=== PATIENT | female | born 1975 | race Two or more races ===

== ENCOUNTER → 2021-01-19 | Day surgery (SDC) | payer MEDICAID ==
[2021-01-16 13:10] LABS: APPEARANCE,URINE CLEAR; BASOPHILS % (AUTO) 1.7 % (0.0-2.0); BILIRUBIN, URINE NEGATIVE (NEGATIVE); COLOR,URINE PALE YELLOW; EOSINOPHILS % (AUTO) 5.6 % (0.0-3.0); GLUCOSE, URINE (UA) NEGATIVE (NEGATIVE); HEMATOCRIT 37.6 % (37.0-47.0); HEMOGLOBIN 11.6 G/DL (12.0-16.0); KETONES,URINE NEGATIVE (NEGATIVE); LEUKOCYTE ESTERASE ,URINE 1+ (NEGATIVE); LYMPHOCYTES % (AUTO) 25.6 % (20.0-45.0); MEAN CORPUSCULAR VOLUME 84 FL (80-99); MONOCYTES % (AUTO) 10.5 % (1.0-10.0); NEUTROPHILS % (AUTO) 56.6 % (45.0-75.0); NITRITE,URINE NEGATIVE (NEGATIVE); PH,URINE 5 (4.5-8.0); PLATELET COUNT 393 K/UL (150-450); PROTEIN,URINE NEGATIVE (NEGATIVE); RED BLOOD COUNT 4.46 M/UL (4.20-5.40); UROBILINOGEN,URINE NORMAL MG/DL (0.0-1.0); WHITE BLOOD COUNT 8.1 K/UL (4.8-10.8)
[2021-01-16 13:14] LABS: ANION GAP 11 mmol/L (5-15); BLOOD UREA NITROGEN 12 mg/dL (7-18); CALCIUM 9.5 MG/DL (8.5-10.1); CARBON DIOXIDE 25 MMOL/L (21-32); CHLORIDE 103 MMOL/L (98-107); CREATININE 0.7 MG/DL (0.55-1.30); SODIUM 139 MMOL/L (136-145)
[2021-01-16 13:23] LABS: INR 0.9 (0.9-1.1)
--- NOTE | 2021-01-17 11:59 | Pre-op HX & Phy Repo 2 SIG ---
DATE OF ADMISSION: 01/19/2021 SCHEDULED FOR OUTPATIENT SURGERY: January 19, 2021. HISTORY OF PRESENT ILLNESS: The patient is a 45-year-old female in overall good health with ductal carcinoma in situ of the left breast. The patient underwent imaging studies revealing 1 cm abnormal calcifications in the upper outer quadrant of the left breast. Core biopsy revealed ductal carcinoma in situ on November 24, 2020. Repeat core biopsy December 07, revealed no malignancy, attempting to biopsy additional isolated microcalcifications. Subsequently, the patient underwent an MRI revealing two biopsy clips, one at 12 o'clock, one at 2 o'clock in the left breast upper outer quadrant 9 cm from the nipple, two abnormal areas adjacent. The patient is scheduled to undergo left breast partial mastectomy with preoperative stereotactic needle localization x2. PAST MEDICAL HISTORY/MEDICATIONS: In the past for toe fungus. ALLERGIES: None. OPERATIONS: Removal of cyst of back. REVIEW OF SYSTEMS: She is 1, para 1. She has regular menstrual periods. PHYSICAL EXAMINATION: GENERAL: The patient is 5 feet 5 inches, 193 pounds. VITAL SIGNS: Within normal limits. HEENT: Within normal limits. LUNGS: Clear. HEART: Regular rhythm. BREASTS: Large and ptotic. There is no palpable mass in either breast. No primary or secondary sign of tumor. No axillary or supraclavicular lymphadenopathy. ABDOMEN: Soft. PELVIC AND RECTAL: Per primary care. EXTREMITIES: Without edema. NEUROLOGIC: Physiologic. IMPRESSION: Ductal carcinoma in situ, left breast, two adjacent abnormal lesions. PLAN: Left breast partial mastectomy with preoperative needle localization x 2 DISCUSSION: I have had a full discussion with the patient regarding the nature of her condition, the nature of the surgery, indications, alternatives, options, and risks including bleeding, infection, distortion of the breast or nipple and need for additional treatments including radiation to the breast and possible endocrine therapy and if invasive carcinoma is found then she would need lymph node biopsy and possible additional treatments. She understands and agrees to proceed. Joseph Wells M.D. DR: GLADIS/HAMIDA JOB#: [id number] CC: KATT
[2021-01-19] VITALS (12 sets, daily range): BP systolic 91–136; BP diastolic 40–80
[~2021-01-19] VITALS: Ht 160 cm; Wt 87.5 kg
[~2021-01-19] MED LIST: Bacitracin 50000 Units Vial ONE; D5 1/2NS 1,000 ML IV SCH; DiphenhydrAMINE 50mg/ml Inj IVP PRN; HYDROcodone/Acetamin 5/325 tab ORAL PRN; HYDROmorphone 1mg/ml Carpuject SUBQ PRN; Hydromorphone 0.5mg/0.5ml inj IVP PRN; Ketorolac 30mg Inj IV PRN; LORazepam Inj 2mg/ml 1ml IV PRN; LR 1000ml 1,000 ML IVLG SCH; Lidocaine 1% MPF 10mg/ml 5ml ONE; Midazolam 2mg/2ml Inj IVP PRN; Midazolam 2mg/2ml Inj ONE; NS Irrig 1000ml IRRIG ONE; NeoSporin Gu Irrig 1ml Amp IRRIG ONE; Tylenol #3 tab (300mg/30mg) ORAL PRN; fentaNYL 100 mcg/2 mL IV ONE; fentaNYL 100 mcg/2 mL IV PRN
--- NOTE | 2021-01-19 08:53 | Pre-Procedure Note/Attestation ---
Pre-Procedure Note/Attestation Complete Prior to Procedure Planned Procedure: left Procedure Narrative: left breast partial mastectomy with pre-operative needle localization Indications for Procedure Pre-Operative Diagnosis: ductal carcinoma in situ left breast Attestation I attest that I discussed the nature of the procedure; its benefits; risks and complications; and alternatives (and the risks and benefits of such alternatives), prior to the procedure, with the patient (or the patient's legal office services representative). I attest that, if there was a reasonable possibility of needing a blood transfusion, the patient (or the patient's legal office services representative) was given the [facility] standardized written summary, pursuant to the [place] Blood Safety Act ([place] Health and Safety Code # 1645, as amended). I attest that I re-evaluated the patient just prior to the surgery and that there has been no change in the patient's H&P, except as documented below: none Joseph Wells MD Jan 19, 2021 08:52
--- NOTE | 2021-01-19 09:09 | Anethesia Preoperative Eval ---
Anesthesia Pre-op PMH/ROS General Date of Evaluation: Jan 19, 2021 Anesthesiologist: Lio ASA Score: ASA 3 Mallampati Score Class I : Soft palate, uvula, fauces, pillars visible Class II: Soft palate, uvula, fauces visible Class III: Soft palate, base of uvula visible Class IV: Only hard plate visible Mallampati Classification: Class II Surgeon: rosalba Diagnosis: left breast cancer Surgical Procedure: left breast partial mastectomy Anesthesia History: none Family History: no anesthesia problems Allergies: Coded Allergies: No Known Allergies (Unverified , 01/18/21) Medications: see eMAR Patient NPO?: Yes NPO Date: Jan 19, 2021 NPO Time: 00:00 Past Medical History Cardiovascular: Denies: HTN, CAD, HI, valve dz, arrhythmia, other Pulmonary: Denies: asthma, COPD, MAYRA, other Gastrointestinal/Genitourinary: Denies: GERD, CRI, ESRD, other Neurologic/Psychiatric: Denies: dementia, CVA, depression/anxiety, TIA, other Endocrine: Reports: other - left breast cancer; Denies: DM, hypothyroidism, steroids HEENT: Denies: cataract (L), cataract (R), glaucoma, ELEM (L), ELEM (R), other Hematology/Immune: Denies: anemia, DVT, bleeding disorder, other Musculoskeletal/Integumentary: Denies: OA, RA, DJD, DDD, edema, other Other: obesity PSxH Narrative: denies Anesthesia Pre-op Phys. Exam Physician Exam Last Vital Signs Date Time Temp Pulse Resp B/P (MAP) Pulse Ox O2 Delivery O2 Flow Rate FiO2 01/19/21 08:58 97.2 67 18 118/68 99 Room Air Constitutional: NAD Cardiovascular: RRR Respiratory: CTA Airway Exam Mallampati Score: Class II MO: full Neck: short, obese ROM: full Teeth: intact Anesthesia Pre-op A/P Labs see chart Urine Test Test 01/19/21 08:30 Urine HCG, Qualitative Pending Studies Pre-op Studies: EKG - sr Risk Assessment & Plan Assessment: asa iii Plan: ga Status Change Before Surgery: No Pre-Antibiotics Drug: ancef 2g Given Within 1 Hr of Incision: Yes Yolanda Vaca MD Jan 19, 2021 09:09
--- NOTE | 2021-01-19 10:34 | Brief Operative Note ---
Immediate Post Operative Note Operative Note Pre-op Diagnosis: ductal carcinoma in situ left breast Procedure: left breast partial mastectomy with pre-operative needle localization Post-op Diagnosis: same Post-op Diagnosis: same as pre-op Findings: consistent w/pre-op dx studies Surgeon: rosalba Anesthesiologist: mary Specimen: yes - right breast tissue Complications: none Condition: stable Fluids: see anesthesia record Estimated Blood Loss: minimal Drains: none Implant(s) used?: No Joseph Wells MD Jan 19, 2021 10:34
--- NOTE | 2021-01-19 10:38 | Immediate Post-Op Evaluation ---
Immediate Post-Op Evalulation Immediate Post-Op Evalulation Procedure: left partial breast mastectomy Date of Evaluation: Jan 19, 2021 Time of Evaluation: 10:40 IV Fluids: 600 Blood Products: 0 Estimated Blood Loss: min Urinary Output: 0 Blood Pressure Systolic: 91 Blood Pressure Diastolic: 44 Pulse Rate: 85 Respiratory Rate: 16 O2 Sat by Pulse Oximetry: 98 Temperature (Fahrenheit): 98.3 Pain Score (1-10): 0 Nausea: No Vomiting: No Complications 0 Patient Status: awake, reacts, patent, none Hydration Status: adequate Drug: Ancef 2g Given Within 1 Hr of Incision: Yes Yolanda Vaca MD Jan 19, 2021 10:38
--- NOTE | 2021-01-19 10:40 | 48 Hour Post Anesthesia Eval ---
Post Anesthesia Evaluation Procedure: left partial breast mastectomy Date of Evaluation: Jan 19, 2021 Airway: patent Nausea: No Vomiting: No Pain Intensity: 0 Hydration Status: adequate Cardiopulmonary Status: at baseline Mental Status/LOC: patient returned to baseline Post-Anesthesia Complications: 0 Follow-up care needed: ready to discharge Yolanda Vaca MD Jan 19, 2021 10:40
--- NOTE | 2021-01-19 11:29 | Operative Note - Dictated ---
DATE OF OPERATION: 01/19/2021 SURGEON: Joseph Wells MD. NURSE CHEMICAL DEPENDENCY: None. ANESTHESIOLOGIST: Dr. Vaca. TYPE OF ANESTHESIA: General. PREOPERATIVE DIAGNOSIS: Ductal carcinoma in situ, left breast. POSTOPERATIVE DIAGNOSIS: Ductal carcinoma in situ, left breast. OPERATION PERFORMED: Left breast partial mastectomy with preoperative needle localization. DESCRIPTION OF PROCEDURE: The patient was taken to the operating room and under general anesthesia with sequential compression device stockings in place, she was prepped and draped in usual fashion. The lesion was located in the left breast upper outer quadrant 9 cm from the nipple involving a cluster of calcifications. An outer breast curvilinear incision was made achieving hemostasis with cautery and flaps dissected circumferentially with the wire brought into the field. The appropriate quadrant of breast tissue was resected achieving hemostasis with cautery. The specimen was oriented with sutures placed anterior, superior, and medial. Specimen radiograph was obtained, which confirmed that the lesion and marking clip was included within the tissue removed. The field was irrigated with sterile water followed by antibiotic solution and hemostasis carefully achieved with cautery. The incision was closed with interrupted 3-0 Vicryl deep dermal subcutaneous sutures followed by continuous 4-0 Monocryl subcuticular suture. Tincture of benzoin and half-inch Steri-Strips were applied followed by dry sterile dressing. Final sponge and needle counts were correct. The patient tolerated the procedure well and left the operating room in good condition. Joseph Wells M.D. DR: GERONIMO JOB#: [id number] CC:
--- NOTE | 2021-01-19 15:31 | Cardiology Report ---
APPROVED REPORT EKG Measurement Heart [id number] <Conclusion> Normal sinus rhythm Normal ECG
== END | disposition home or self-care (01) ==
LOC: SUR 08:25
DX: D05.12 Intraductal carcinoma in situ of left breast (principal); E66.9 Obesity, unspecified; Z68.34 Body mass index [BMI] 34.0-34.9, adult
CPT/HCPCS: 19301; 36415; 80048; 81001; 81025; 85025; 85610; 85730; 93005; 94003; J0690; J1100; J2250; J2405; J2704; J3010; U0004; Z7512; 94150